=== PATIENT | female | born 1975 ===

== ENCOUNTER 2021-03-31 12:15 | Inpatient (IN) | payer OTHER ==
[~2021-03-31] VITALS: Ht 160 cm; Wt 104.3 kg
== END 2021-04-04 18:41 | disposition home or self-care (01) | DRG 743 ==
LOC: O/R 04-03 07:00 → SURH 04-03 12:15 → OB/GYN 04-03 18:51 → SURH 04-03 19:45 → OB/GYN 04-04 16:12
PROVIDERS: ADMIT Obstetrics & Gynecology Gynecologic Oncology; ATTEND Obstetrics & Gynecology Gynecologic Oncology
PROC: 0UT24ZZ Resection of Bilateral Ovaries, Percutaneous Endoscopic Approach (ICD-10-PCS; 2021-04-03)
PROC: 0UT74ZZ Resection of Bilateral Fallopian Tubes, Percutaneous Endoscopic Approach (ICD-10-PCS; 2021-04-03)
PROC: 0UT94ZZ Resection of Uterus, Percutaneous Endoscopic Approach (ICD-10-PCS; principal; 2021-04-03 19:45)
DX: N88.8 Other specified noninflammatory disorders of cervix uteri (principal); N80.0 Endometriosis of uterus; N83.01 Follicular cyst of right ovary; N83.12 Corpus luteum cyst of left ovary; R19.07 Generalized intra-abdominal and pelvic swelling, mass and lump; R97.1 Elevated cancer antigen 125 [CA 125]; Z20.822 Contact with and (suspected) exposure to COVID-19

== ENCOUNTER 2024-08-03 08:35 | Outpatient (CLI) | payer OTHER | END 2024-08-03 08:36 | disposition home or self-care (01) | LOC: SONOGRAMA 08:35 | PROVIDERS: ATTEND Pathology Anatomic Pathology & Clinical Pathology | DX: D34 Benign neoplasm of thyroid gland (principal); E04.1 Nontoxic single thyroid nodule ==